=== PATIENT | male | born 1955 | race African-American/Black ===

== ENCOUNTER → 2018-03-09 | Outpatient (CLI) | payer OTHER ==
[2018-03-09 15:09] LABS: ABSOLUTE LYMPHOCYTES (AUTO) 2.1 10^3/uL (0.5-4.7); ABSOLUTE MONOCYTES (AUTO) 0.4 10^3/uL (0.1-1.4); ABSOLUTE NEUT (AUTO) 2.6 10^3/uL (1.7-8.2); BASOPHILS % (AUTO) 0.6 % (0-2); EOSINOPHILS % (AUTO) 0.2 % (0-6); HEMATOCRIT 40.7 % (37.9-51.0); LYMPHOCYTES % (AUTO) 40.9 % (13-45); MEAN CORPUSCULAR HEMOGLOBIN 30.4 pg (27.0-33.4); MEAN CORPUSCULAR HGB CONC 34.5 g/dL (32.0-36.0); MEAN CORPUSCULAR VOLUME 88 fl (80-97); MONOCYTES % (AUTO) 7.9 % (3-13); PLATELET COUNT 323 10^3/uL (150-450); RED BLOOD COUNT 4.62 10^6/uL (4.35-5.55); RED CELL DISTRIBUTION WIDTH 14.1 % (11.5-14.0); SEGMENTED NEUTROPHILS % (AUTO) 50.4 % (42-78); TOTAL CELLS COUNTED % (AUTO) 100 %; WHITE BLOOD COUNT 5.2 10^3/uL (4.0-10.5)
[2018-03-09 15:26] LABS: ALANINE AMINOTRANSFERASE 22 U/L (21-72); ALBUMIN 3.7 g/dL (3.5-5.0); ALKALINE PHOSPHATASE 112 U/L (38-126); ANION GAP 13 (5-19); ASPARTATE AMINO TRANSFERASE 15 U/L (17-59); BILIRUBIN,DIRECT 0.2 mg/dL (0.0-0.4); BILIRUBIN,TOTAL 0.3 mg/dL (0.2-1.3); BLOOD UREA NITROGEN 7 mg/dL (7-20); CALCIUM 9.1 mg/dL (8.4-10.2); CARBON DIOXIDE 24 mmol/L (22-30); CHLORIDE 103 mmol/L (98-107); GLUCOSE 307 mg/dL (75-110); POTASSIUM 4.1 mmol/L (3.6-5.0); SODIUM 140.2 mmol/L (137-145); TOTAL PROTEIN 7.1 g/dL (6.3-8.2)
== END ==
LOC: OD 14:00
PROVIDERS: ATTEND Internal Medicine Geriatric Medicine
DX: E11.65 Type 2 diabetes mellitus with hyperglycemia (principal); I10 Essential (primary) hypertension
CPT/HCPCS: 36415; 80053; 83036; 85025

== ENCOUNTER 2018-12-20 13:56 | Emergency (ER) | payer MEDICARE, OTHER ==
--- NOTE | 2018-12-20 15:29 | ER Document Report ---
ED Medical Screen (RME) - General Chief Complaint: Neck Pain >24hrs old Stated Complaint: RIGHT SIDE NECK PAIN Time Seen by Provider: 12/20/18 15:24 Primary Care Provider: RAJINDER SILVA MD [Primary Care Provider] - Follow up as needed Mode of Arrival: Ambulatory Information source: Patient Notes: 62-year-old male presented to ED for complaint of pain to the right neck chest and down the right arm. States it comes and goes. He states he had a clot in the right subclavian about 2-1/2 years ago he took Xarelto at that time. He states he has 1 Xarelto left so he took it today. 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 Patient is alert oriented respirations regular and her speaking in full sentences. He does smoke 1/2 pack a day drinks rarely and lives alone. I have greeted and performed a rapid initial assessment of this patient. A comprehensive ED assessment and evaluation of the patient, analysis of test results and completion of medical decision making process will be conducted by an additional ED providers. TRAVEL OUTSIDE OF THE [place] IN LAST 30 DAYS: No - Related Data Allergies/Adverse Reactions: No Known Allergies Allergy (Verified 12/20/18 14:04) Past Medical History - Past Medical History Cardiac Medical History: Reports: Hx Hypertension Denies: Hx Coronary Artery Disease, Hx Heart Attack Pulmonary Medical History: Denies: Hx Asthma, Hx Bronchitis, Hx COPD, Hx Pneumonia Neurological Medical History: Denies: Hx Cerebrovascular Accident, Hx Seizures Endocrine Medical History: Reports: Hx Diabetes Mellitus Type 1 Musculoskeltal Medical History: Reports Hx Arthritis - Immunizations Hx Diphtheria, Pertussis, Tetanus Vaccination: Yes Physical Exam - Vital signs Vitals: Temp Pulse Resp BP Pulse Ox 99.3 F 114 H 20 149/83 H 100 12/20/18 14:19 12/20/18 14:12/20/18 14:12/20/18 14:12/20/18 14:19 Course - Vital Signs Vital signs: Temp Pulse Resp BP Pulse Ox 99.3 F 114 H 20 149/83 H 100 12/20/18 14:19 12/20/18 14:19 12/20/18 14:19 12/20/18 14:19 12/20/18 14:19 Doctor's Discharge - Discharge Referrals: RAJINDER SILVA MD [Primary Care Provider] - Follow up as needed
[2018-12-20 16:13] LABS: ABSOLUTE BASOPHILS # (AUTO) 0.1 10^3/uL (0.0-0.2); ABSOLUTE EOSINOPHILS # (AUTO) 0.1 10^3/uL (0.0-0.6); ABSOLUTE LYMPHOCYTES (AUTO) 2.6 10^3/uL (0.5-4.7); ABSOLUTE MONOCYTES (AUTO) 0.8 10^3/uL (0.1-1.4); ABSOLUTE NEUT (AUTO) 4.3 10^3/uL (1.7-8.2); BASOPHILS % (AUTO) 1.7 % (0-2); EOSINOPHILS % (AUTO) 0.9 % (0-6); HEMATOCRIT 46.7 % (37.9-51.0); HEMOGLOBIN 15.5 g/dL (13.5-17.0); LYMPHOCYTES % (AUTO) 33.5 % (13-45); MEAN CORPUSCULAR HEMOGLOBIN 29.3 pg (27.0-33.4); MEAN CORPUSCULAR HGB CONC 33.1 g/dL (32.0-36.0); MEAN CORPUSCULAR VOLUME 89 fl (80-97); MONOCYTES % (AUTO) 9.7 % (3-13); PLATELET COUNT 346 10^3/uL (150-450); RED BLOOD COUNT 5.27 10^6/uL (4.35-5.55); RED CELL DISTRIBUTION WIDTH 15.4 % (11.5-14.0); SEGMENTED NEUTROPHILS % (AUTO) 54.2 % (42-78); TOTAL CELLS COUNTED % (AUTO) 100 %; WHITE BLOOD COUNT 7.9 10^3/uL (4.0-10.5)
--- NOTE | 2018-12-20 16:36 | RADIOLOGY REPORT (SQ) ---
EXAM DESCRIPTION: CHEST 2 VIEWS COMPLETED DATE/TIME: 12/20/2018 4:21 pm REASON FOR STUDY: pain right chest COMPARISON: None. EXAM PARAMETERS: NUMBER OF VIEWS: two views TECHNIQUE: Digital Frontal and Lateral radiographic views of the chest acquired. RADIATION DOSE: NA LIMITATIONS: none FINDINGS: LUNGS AND PLEURA: No opacities, masses or pneumothorax. No pleural effusion. MEDIASTINUM AND HILAR STRUCTURES: No masses or contour abnormalities. HEART AND VASCULAR STRUCTURES: Heart normal size. No evidence for failure. BONES: No acute findings. HARDWARE: None in the chest. OTHER: No other significant finding. IMPRESSION: NO ACUTE RADIOGRAPHIC FINDING IN THE CHEST. TECHNICAL DOCUMENTATION: JOB ID: [id number] [employer]- All Rights Reserved Reading location - IP/workstation name: [email or web address]
--- NOTE | 2018-12-20 16:54 | XCELERA REPORT ---
[address] [address] Upper Extremity Venous Evaluation Name: AYSE KRISHNAN Age: 63 yrs Gender: Male : 1955 Patient Status: Preadmit Patient Location: ER Study Date: 12/20/2018 04:18 PM Procedure: Unilateral duplex scan of the right upper extremity veins was performed, including responses to compression and other maneuvers. Reason For Study: History of subclavian blood clot on right, pain to Ordering Physician: HOSSEIN BORJA Performed By: Rakel Oden Right Side Venous Evaluation Normal vessel filling wall to wall, compression and augmentation as well as Colour flow down to the forearm veins. Interpretation Summary Normal compression, patency, spontaneous and phasic flow of the right upper extremity veins. : HOSSEIN BORJA > Vish Townsend
[2018-12-20 17:03] LABS: CREATINE KINASE MB 1.31 ng/mL (<4.55)
[2018-12-20 17:04] LABS: TROPONIN I < 0.012 ng/mL
[2018-12-20 19:20] LABS: ANION GAP 10 (5-19); BLOOD UREA NITROGEN 7 mg/dL (7-20); CALCIUM 9.4 mg/dL (8.4-10.2); CARBON DIOXIDE 30 mmol/L (22-30); CHLORIDE 100 mmol/L (98-107); GLUCOSE 205 mg/dL (75-110); POTASSIUM 4.5 mmol/L (3.6-5.0); SODIUM 140.2 mmol/L (137-145)
--- NOTE | 2018-12-20 20:07 | EKG REPORT ---
SEVERITY:- ABNORMAL ECG - SINUS TACHYCARDIA : Confirmed by: Soraida Ralph MD 20-Dec-2018 20:06:09
--- NOTE | 2018-12-20 20:29 | ER Document Report ---
ED General - General Chief Complaint: Neck Pain >24hrs old Stated Complaint: RIGHT SIDE NECK PAIN Time Seen by Provider: 12/20/18 15:24 Primary Care Provider: RAJINDER SILVA MD [Primary Care Provider] - Follow up as needed Mode of Arrival: Ambulatory Notes: Patient is a 63-year-old male past medical history of chronic pain taking 160 mg of oxycodone scheduled daily with additional doses of 15 mg up to 3 times daily for breakthrough pain presents complaining of right-sided neck and right arm pain for the past 2 days. Pain is a stabbing, aching pain comes and goes. Worsened by lying or putting weight on the right upper extremity. Patient denies any chest pain or shortness of breath. Nothing seems to relieve the pain. Patient states that he was worried that this was a recurrence of a subclavian blood clot that he had approximately 2 and half years ago. Not currently on any form of anticoagulation although began taking Xarelto yesterday due to concern that this could be the cause of his neck pain. He has not seen his primary doctor regarding today's concerns. Uncertain whether or not he has had similar symptoms in the past. No trauma to the area. Does have a history of "cervical spine bone spurs". Denies focal weakness, numbness or inability to use the extremity. Denies any actual swelling to the right upper extremity. TRAVEL OUTSIDE OF THE [place] IN LAST 30 DAYS: No - Related Data Allergies/Adverse Reactions: No Known Allergies Allergy (Verified 12/20/18 14:04) Past Medical History - General Information source: Patient - Social History Smoking Status: Current Every Day Smoker Frequency of alcohol use: Rare Drug Abuse: None Family History: Reviewed & Not Pertinent Patient has suicidal ideation: No Patient has homicidal ideation: No - Past Medical History Cardiac Medical History: Reports: Hx Hypertension Denies: Hx Coronary Artery Disease, Hx Heart Attack Pulmonary Medical History: Denies: Hx Asthma, Hx Bronchitis, Hx COPD, Hx Pneumonia Neurological Medical History: Denies: Hx Cerebrovascular Accident, Hx Seizures Endocrine Medical History: Reports: Hx Diabetes Mellitus Type 1, Hx Diabetes Mellitus Type 2 Renal/ Medical History: Denies: Hx Peritoneal Dialysis Musculoskeletal Medical History: Reports Hx Arthritis - Immunizations Hx Diphtheria, Pertussis, Tetanus Vaccination: Yes Review of Systems - Review of Systems Notes: Constitutional: Negative for fever. HENT: Negative for sore throat. Eyes: Negative for visual changes. Cardiovascular: Negative for chest pain. Respiratory: Negative for shortness of breath. Gastrointestinal: Negative for abdominal pain, vomiting or diarrhea. Genitourinary: Negative for dysuria. Musculoskeletal: Positive right upper extremity and right neck pain Skin: Negative for rash. Neurological: Negative for headaches, weakness or numbness. 10 point ROS negative except as marked above and in HPI. Physical Exam - Vital signs Vitals: Temp Pulse Resp BP Pulse Ox 99.3 F 114 H 20 149/83 H 100 12/20/18 14:19 12/20/18 14:19 12/20/18 14:19 12/20/18 14:19 12/20/18 14:19 Interpretation: Tachycardic - Resolved at the time of my assessment Notes: PHYSICAL EXAMINATION: GENERAL: Well-appearing, well-nourished and in no acute distress. HEAD: Atraumatic, normocephalic. EYES: Pupils equal round and reactive to light, extraocular movements intact, sclera anicteric, conjunctiva are normal. ENT: nares patent, oropharynx clear without exudates. Moist mucous membranes. NECK: Normal range of motion, supple without lymphadenopathy LUNGS: Breath sounds clear to auscultation bilaterally and equal. No wheezes rales or rhonchi. HEART: Regular rate and rhythm without murmurs, 2+ radial pulses bilaterally. ABDOMEN: Soft, nontender, normoactive bowel sounds. No guarding, no rebound. No masses appreciated. EXTREMITIES: Normal range of motion, no pitting or edema. No cyanosis. NEUROLOGICAL: No focal neurological deficits. Moves all extremities spontaneously and on command. 5 out of 5 biceps and triceps strength bilaterally. RMU motor and sensory vision intact bilaterally. PSYCH: Normal mood, normal affect. SKIN: Warm, Dry, normal turgor, no rashes or lesions noted. Course - Re-evaluation Re-evalutation: 12/20/18 20:25 Patient presents with several days of right-sided neck and right upper extremity pain that comes and goes worsen with movement of the right shoulder and laying onto the right shoulder. Patient denies any current symptoms at the time of my evaluation. Right upper extremity ultrasound does not demonstrate any evidence of a blood clot. On exam he has no limited range of motion of the shoulder, neck or elbow. RMU motor and sensory distribution is intact. Troponins are 0 and 3 are negative and I do not suspect an atypical presentation of ACS. Chest x-ray is likewise clear. Patient has a long-standing history of chronic pain, is on greater than 160 mg of oxycodone daily and has a known history of bone spurs in his cervical spine that frequently cause neck pain. I do suspect that this is more musculoskeletal origin given the benign work-up as well as no focal findings on examination. Patient is in agreement with this, states that he want to make sure that it was not a recurrence of a blood clot in his right upper extremity given his history. There is no appreciable edema to his external jugular vein, chest wall or into the right upper extremity. I do not suspect a recurrence of a subclavian blood clot given the absence of any clinical features to support this diagnosis. At this time will discharge with return precautions and follow-up recommendations. Verbal discharge instructions given a the bedside and opportunity for questions given. Medication warnings reviewed. Patient is in agreement with this plan and has verbalized understanding of return precautions and the need for primary care follow-up in the next 24-72 hours. - Vital Signs Vital signs: Temp Pulse Resp BP Pulse Ox 97.9 F 99 20 129/70 H 100 12/20/18 20:37 12/20/18 20:37 12/20/18 20:37 12/20/18 20:37 12/20/18 20:37 - Laboratory Result Diagrams: 12/20/18 15:52 12/20/18 18:32 Laboratory results interpreted by me: 12/20/18 12/20/18 15:52 18:32 RDW 15.4 H Glucose 205 H - Diagnostic Test Radiology reviewed: Image reviewed, Reports reviewed Radiology results interpreted by me: 12/20/18 20:27 Chest x-ray: No acute infiltrate or pneumothorax - EKG Interpretation by Me Additional EKG results interpreted by me: 12/21/18 02:06 Sinus tachycardia, rate 102. PVCs. No ST elevations or depressions. QTC is 459. Discharge - Discharge Clinical Impression: Neck pain on right side, Right arm pain Condition: Good Disposition: HOME, SELF-CARE Additional Instructions: Your pain is likely related to impingement one of your cervical nerve roots and will take 6-8 weeks completely resolved. Please follow-up with your primary doctor within 24-48 hours. you should also apply heat to the area regularly using an electric heating plant pad. Return to the emergency department immediately if you develop weakness, loss of sensation, chest pain, shortness of breath, have worsening of your symptoms, or any other symptoms that are worrisome to you. Referrals: RAJINDER SILVA MD [Primary Care Provider] - Follow up as needed
[2018-12-20 20:38] VITALS: BP 129/70
== END 2018-12-20 20:39 | disposition home or self-care (01) ==
LOC: ER 13:56
DX: M46.02 Spinal enthesopathy, cervical region (principal); M54.2 Cervicalgia; M79.601 Pain in right arm; I10 Essential (primary) hypertension; E11.9 Type 2 diabetes mellitus without complications; F17.200 Nicotine dependence, unspecified, uncomplicated; R00.0 Tachycardia, unspecified; G89.29 Other chronic pain; Z79.891 Long term (current) use of opiate analgesic; Z86.718 Personal history of other venous thrombosis and embolism
CPT/HCPCS: 36415; 71046; 80048; 82553; 84484; 85025; 93005; 93010; 93971; 99284